=== PATIENT | male | born 1975 | race African-American/Black ===

== ENCOUNTER 2016-07-07 11:03 | Emergency (ER) | payer OTHER ==
[~2016-07-07] VITALS: Ht 175.3 cm; Wt 90.7 kg
--- NOTE | 2016-07-07 11:55 | ED CARDIAC/CP/PALPITATIONS ---
History of Present Illness General Chief Complaint: Chest Pain Stated Complaint: CHEST PAIN, ELEVATED BP,ABNORMAL EKG Source: patient Exam Limitations: no limitations Vital Signs & Intake/Output Vital Signs & Intake/Output Vital Signs Date Time Temp Pulse Resp B/P Pulse O2 O2 Flow FiO2 Ox Delivery Rate 07/07 1445 98.0 62 18 140/80 98 Room Air 07/07 1250 98.2 54 17 138/82 99 Room Air 07/07 1241 98 Room Air 07/07 1112 97.8 61 20 145/97 97 Room Air Allergies Coded Allergies: shrimp (Severe, THROAT CLOSURE 09/24/15) Reconcile Medications No Known Home Medications Triage Note: PT C./O DIZZINESS, MSCP AFTER SMOKING A CIGARETTE EARLIER TODAY. STATES HIS BLOOD PRESSURE WAS TAKEN AT WORK AND FOUND TO BE 190/91. PT WAS GIVEN OMEPRAZOLE AT WORK AND PAIN SUBSIDED. PT IS PAIN FREE AT THIS TIME Triage Nurses Notes Reviewed? yes Onset: Gradual Duration: hour(s): Timing: no prior history Quality/Severity: moderate Location: epigastric Radiation: no radiation Activities at Onset: none Prior Chest Pain/Card Workup: no prior chest pain Nitro Today/Relief: no nitro taken today Aspirin Today: no aspirin today HPI: Patient is a 41-year-old male presenting to the emergency department sent in from work with chief complaint of epigastric pain that began around 820 this morning. Patient describes pain as burning and crampy, was moderate to severe at work. He was given omeprazole which seemed to help symptoms here pain is now 1 out of 10. Denies any chest pain palpitations or shortness of breath. No numbness or tingling. No arm pain and jaw pain. No weakness. Itchiness blood pressure at work and was elevated to 190/90. They sent him in for evaluation. Patient is a daily smoker. He was smoking when this pain started. Denies eating breakfast. Denies any nausea or vomiting. No recent travel. Denies unilateral leg swelling. No recent surgeries. Denies history of blood clots. No family history of cardiac issues as far as he knows. (CHANG DAVISON,ELIANA) Past History Travel History Traveled to [place] past 21 day No Medical History Any Pertinent Medical History? see below for history Neurological: NONE EENT: NONE Cardiovascular: NONE Respiratory: NONE Gastrointestinal: NONE Hepatic: NONE Renal: NONE Musculoskeletal: fracture Psychiatric: NONE Endocrine: NONE Blood Disorders: NONE Cancer(s): NONE PRODUCT DELIVERY SPECIALIST/Reproductive: NONE Surgical History Surgical History: non-contributory Psychosocial History What is your primary language Macedonian Tobacco Use: Current Daily Use Daily Tobacco Use Amount/Type: => 5 Cigarettes daily ETOH Use: occasional use Illicit Drug Use: denies illicit drug use Family History Hx Contributory? No (ELIANA VAZQUEZ) Review of Systems Review of Systems Constitutional: Reports: no symptoms. Comments Review of systems: See HPI, All other systems negative. Constitutional, no chills fever or weight loss HEENT: No visual changes no sore throat no congestion Cardiovascular: No palpitation , orthopnea or ankle swelling Skin, no jaundice no rashes Respiratory: No dyspnea cough sputum or hemoptysis GI: No nausea no vomiting : No dysuria No hematuria Muscle skeletal: no back pain, no neck pain, Neurologic: No numbness no confusion Psych: No stress anxiety or depression,. Heme/endocrine: No bruising no bleeding no polyuria or polydipsia Immunology: No splenectomy or history of AIDS (ELIANA VAZQUEZ) Physical Exam Physical Exam General Appearance: well developed/nourished, no apparent distress, alert, awake , comfortable Cardiovascular: regular rate/rhythm Comments: Well-developed well-nourished person in no acute distress HEENT: Pupils equally round and reactive to light and accommodation. Nose is atraumatic. Neck: Normal inspection Back: Nontender, no CVA tenderness. Full range of motion Cardiovascular: Regular rate and rhythms no murmurs rubs or gallops, normal JVP Respiratory: Chest nontender. No respiratory distress.breath sounds clear to auscultation bilaterally Abdomen: Soft, nontender nondistended, no appreciable organomegaly. Normal bowel sounds. No ascites Extremity: No edema, no calf tenderness to palpation, normal and equal pulses. Neuro: Alert oriented x3, motor sensory normal Skin: No appreciable rash on exposed skin, skin is warm and dry. Psych: Mood and affect is normal, memory and judgment is normal. Core Measures ACS in differential dx? Yes Severe Sepsis Present: No Septic Shock Present: No (ELIANA VAZQUEZ) Progress Differential Diagnosis: pancreatitis, ACS, indigestion, gastritis, peptic ulcer disease, pulmonary embolus Plan of Care: Orders Procedure Date/time Status Heart Healthy Diet 02/17 L Active TROPONIN LEVEL 07/07 1600 Complete EKG 07/07 1600 Active Telemetry/Lease Operator 07/07 1148 Active TROPONIN LEVEL 07/07 1148 Complete COMPREHENSIVE METABOLIC PANEL 07/07 1148 Complete CHOLESTEROL 07/07 1148 Complete CBC WITHOUT DIFFERENTIAL 07/07 1148 Complete B-TYPE NATRIURETIC PEP (BNP) 07/07 1148 Complete EKG 07/07 1105 Active Laboratory Tests 07/07/16 1551: Troponin I < 0.01 07/07/16 1200: Anion Gap 7, Estimated GFR > 60, BUN/Creatinine Ratio 11.7, Glucose 97, Calcium 9.4, Total Bilirubin 0.6, AST 34, ALT 46, Alkaline Phosphatase 74, Troponin I < 0.01, Mya-P-Rdikuawmotl Pept 18.7, Total Protein 7.5, Albumin 4.2, Globulin 3.3, Albumin/Globulin Ratio 1.3, Cholesterol 181, CBC w Diff NO MAN DIFF REQ, RBC 5.10, MCV 88.6, MCH 28.9, RDW 13.6, MPV 7.3 L, Gran % 56.1, Lymphocytes % 34.1, Monocytes % 7.0, Eosinophils % 1.4, Basophils % 1.4, Absolute Granulocytes 4.1, Absolute Lymphocytes 2.5, Absolute Monocytes 0.5, Absolute Eosinophils 0.1, Absolute Basophils 0.1, PUBS MCHC 32.6 L Diagnostic Imaging: Viewed by Me: Radiology Read. Discussed w/RAD: Radiology Read. Radiology Impression: PATIENT: KRUPA JACOBSON PRESENT AGE: 41 PATIENT ACCOUNT NO: [id number] : 73 LOCATION: [facility] ORDERING PHYSICIAN: ELIANA DAVISON SERVICE DATE: 07/07/16 EXAM TYPE: RAD - XRY-CHEST XRAY, PA AND LATERAL EXAMINATION: XR CHEST CLINICAL INFORMATION: Cardiomegaly COMPARISON: None TECHNIQUE: 2 views of the chest were obtained. FINDINGS: No significant abnormality is noted involving the heart, lungs, mediastinum, bony thorax or soft tissues. IMPRESSION: Unremarkable examination. DICTATED BY: GEMMA ALVAREZ MD DATE/TIME DICTATED:07/07/161447 CLOTH MEASURER :ALBA DATE/TIME TRANSCRIBED:07/07/161447 CONFIDENTIAL, DO NOT COPY WITHOUT APPROPRIATE AUTHORIZATION. <Electronically signed in Other Vendor System> SIGNED BY: GEMMA ALVAREZ MD 07/07/16 8339 Initial ED EKG: NSR (59 bpm, early re-pole) Prior EKG: unchanged (no previous) Repeat EKG: unchanged Comments: 07/07/2016 12:03:21 PM on arrival patient is in no acute distress blood pressure is more stable, not tachycardic. Exam is benign. We'll assess epigastric pain with EKG, CBC, CMP, troponin, cholesterol we will monitor this patient on the beef specialist. Patient reports that he is essentially pain-free at this time. His pain went away after omeprazole. Patient given GI cocktail to see if it would help with the rest of discomfort. 07/07/2016 12:34:02 PM EKG is normal sinus with early repolarization and left ventricular hypertrophy. 07/07/2016 12:54:23 PM patient informed of all lab work results. Still pending troponin. Patient still needs ago for chest x-ray. Resting comfortably. Pain- free at this time. Requesting something. For lunch. 07/07/2016 1:34:53 PM patient informed of troponin, he was also informed that we should repeat a troponin and EKG 4 hours from the first which will be at 4 PM. Patient complain to this plan. He was informed of waiting. Still waiting for lunch to arrive. 07/07/2016 4:22:37 PM repeat EKG is unchanged. Still pending troponin. Patient still pain-free. 07/07/2016 4:41:21 PM troponin is negative. Patient will follow up with pcp. (ELIANA VAZQUEZ) Departure Departure Disposition: HOME OR SELF CARE Condition: Stable Clinical Impression Primary Impression: Epigastric pain Referrals: FIDENCIO HANNON MD (PCP/Family) Additional Instructions: Follow-up with your primary care physician regarding her elevated blood pressure earlier today. She'll likely need to check your blood pressure on several occasions to diagnose you with hypertension. Return for worsening symptoms or concerns. you can start taking daily omeprazole to help with any indigestion. Departure Forms: Customer Survey General Discharge Information Prescriptions: Current Visit Scripts No Known Home Medications (ELIANA VAZQUEZ) PA/DOG FOOD SHREDDER OPERATOR Co-Sign Statement Statement: ED Attending supervision documentation- [] I saw and evaluated the patient. I have also reviewed all the pertinent lab results and diagnostic results. I agree with the findings and the plan of care as documented in the PA's/DOG FOOD SHREDDER OPERATOR's documentation. [X] I have reviewed the ED Record and agree with the PA's/DOG FOOD SHREDDER OPERATOR's documentation. [] Additions or exceptions (if any) to the PAs/DOG FOOD SHREDDER OPERATOR's note and plan are summarized below: [] (ALMA VILLANUEVA,GLORIA) Critical Care Note Critical Care Note Critical Care Time: non-applicable (CHANG DAVISON,ELIANA)
[2016-07-07 12:11] LABS: ABSOLUTE BASOPHIL COUNT 0.1 /CUMM (0.0-0.2); ABSOLUTE EOSINOPHIL COUNT 0.1 /CUMM (0.0-0.7); ABSOLUTE GRANULOCYTE CT 4.1 /CUMM (1.4-6.5); ABSOLUTE LYMPH COUNT 2.5 /CUMM (1.2-3.4); ABSOLUTE MONOCYTE COUNT 0.5 /CUMM (0.10-0.60); BASOPHIL % 1.4 % (0.0-2.0); EOSINOPHIL % 1.4 % (0-5); GRANULOCYTE % 56.1 % (42.2-75.2); HEMATOCRIT 45.2 % (42-52); MEAN CORPUSCULAR HGB 28.9 PG (27.0-31.0); MEAN CORPUSCULAR HGB CONC 32.6 G/DL (33.0-37.0); MEAN CORPUSCULAR VOLUME 88.6 FL (80.0-94.0); MEAN PLATELET VOLUME 7.3 FL (7.4-10.4); PLATELET COUNT 365 /CUMM (130-400); RBC DISTRIBUTION WIDTH 13.6 % (11.5-14.5); WHITE BLOOD CELL COUNT 7.4 /CUMM (4.8-10.8)
[2016-07-07 14:45] VITALS: BP 140/80
--- NOTE | 2016-07-07 14:53 | RADIOLOGY REPORT ---
EXAMINATION: XR CHEST CLINICAL INFORMATION: Cardiomegaly COMPARISON: None TECHNIQUE: 2 views of the chest were obtained. FINDINGS: No significant abnormality is noted involving the heart, lungs, mediastinum, bony thorax or soft tissues. IMPRESSION: Unremarkable examination.
== END 2016-07-07 17:18 ==
LOC: ERH 11:03
PROVIDERS: Physician Assistant
DX: R10.13 Epigastric pain (principal)
CPT/HCPCS: 93005; 93010